=== PATIENT | male | born 1995 | race Caucasian/White ===

== ENCOUNTER 2022-06-07 13:18 | Emergency (ER) | payer MEDICAID, OTHER ==
[2022-06-07] MEDS ORDERED: HYDROCODONE/ACETAMINOPHEN 5/325MG TABLET PO ONE (16:15)
[2022-06-07] MEDS ORDERED: HYDR-4001 MT (17:12)
[2022-06-07] MEDS ORDERED: IBUP-2029 MT (17:12)
== END 2022-06-07 17:55 | disposition home or self-care (01) ==
LOC: ER 13:18
DX: S62.344A Nondisplaced fracture of base of fourth metacarpal bone, right hand, initial encounter for closed fracture (principal); V18.0XXA Pedal cycle driver injured in noncollision transport accident in nontraffic accident, initial encounter; Y93.89 Activity, other specified; Y92.830 Public park as the place of occurrence of the external cause; Y99.8 Other external cause status
CPT/HCPCS: 73110; 73130; 99284

== ENCOUNTER 2024-01-14 09:48 | Emergency (ER) | payer MEDICAID, OTHER ==
[~2024-01-14] VITALS: Ht 167.6 cm; Wt 84.0 kg
[~2024-01-14 09:48] MED LIST: HYDR-4001 MT; IBUP-2029 MT
[2024-01-14 10:10] VITALS: TEMP 98; O2SAT 100
[2024-01-14 10:45] VITALS: BP 124/77; PULSE 100; RESP 16
[2024-01-14] MEDS: IBUPROFEN 800MG TABLET PO ONE (10:45)
[2024-01-14] MEDS ORDERED: IBUP-2030 MT (11:22)
== END 2024-01-14 13:17 | disposition home or self-care (01) ==
LOC: ER 09:48
DX: S52.122A Displaced fracture of head of left radius, initial encounter for closed fracture (principal); W18.39XA Other fall on same level, initial encounter; Y93.89 Activity, other specified; Y92.89 Other specified places as the place of occurrence of the external cause; Y99.8 Other external cause status
CPT/HCPCS: 29105; 73080; 99283

== ENCOUNTER 2024-08-28 15:42 | Emergency (ER) | payer MEDICAID ==
[~2024-08-28] VITALS: Ht 165.1 cm; Wt 83.9 kg
[~2024-08-28 15:42] MED LIST changes: +IBUP-2030 MT
[2024-08-28 16:02] VITALS: O2SAT 98
[2024-08-28 22:17] LABS: BASOPHILS % 0.5 % (0.0-2.0); HEMATOCRIT. 42.3 % (42.0-52.0); HEMOGLOBIN. 14.6 g/dL (14.0-18.0); LYMPHOCYTES % 27.1 % (20.0-50.0); MEAN CORPUSCULAR HEMOGLOBIN 28.8 pg (28.0-32.0); MEAN CORPUSCULAR HGB CONC 34.5 g/dL (31.0-37.0); MEAN CORPUSCULAR VOLUME 83.3 fL (80.0-94.0); MEAN PLATELET VOLUME 9.2 fl (7.4-10.4); MONOCYTES % 12.4 % (2.0-8.0); PLATELET 230 x1000/uL (130-400); RED BLOOD CELL COUNT 5.08 mill/uL (4.7-6.1); RED CELL DISTRIBUTION WIDTH 13.6 % (11.6-14.6); WHITE BLOOD COUNT 7.1 x1000/uL (4.5-11.0)
[2024-08-28 22:22] LABS: CHLORIDE 104 mEq/L (98-107); POTASSIUM 3.8 mEq/L (3.5-5.1); SODIUM 138 mEq/L (136-145)
[2024-08-28 22:23] LABS: CALCIUM 9.6 mg/dL (8.7-10.4); CARBON DIOXIDE 27 mEq/L (21-32)
[2024-08-28 22:28] LABS: CREATININE 0.9 mg/dL (0.6-1.3); GLUCOSE 105 mg/dL (70-105); UREA NITROGEN BLOOD 12 mg/dL (9-23)
[2024-08-28 23:31] VITALS: BP 132/76; PULSE 68; RESP 16; TEMP 36.78072; O2SAT 98
== END 2024-08-28 23:30 | disposition home or self-care (01) ==
LOC: ER 15:42
DX: R06.02 Shortness of breath (principal); E78.00 Pure hypercholesterolemia, unspecified
CPT/HCPCS: 36415; 71045; 80048; 85025; 93005; 99285